=== PATIENT | female | born 1985 | race Two or more races ===

== ENCOUNTER → 2018-12-29 | Outpatient (CLI) | payer OTHER ==
[~2018-12-29] MED LIST: ACET500 PO; AMOX875 PO; BIRTH CONTROL PILL; CEPH250A PO; CIPR500 PO; CODACE30 PO; HYDACE5 PO; IBUP600 PO; ONDA4ODT MM; OXYACE5T PO; PARO30 PO; PROM25 PO
== END | disposition home or self-care (01) ==
LOC: LAB SHORT 08:12 → PLD 08:12
DX: D22.39 Melanocytic nevi of other parts of face (principal)
CPT/HCPCS: 88305